=== PATIENT | female | born 1990 | race Caucasian/White ===

== ENCOUNTER → 2018-04-19 | Outpatient (CLI) | payer OTHER | END | disposition home or self-care (01) | LOC: US 15:46 | DX: Z34.82 Encounter for supervision of other normal pregnancy, second trimester (principal); Z3A.18 18 weeks gestation of pregnancy | CPT/HCPCS: 76805 ==

== ENCOUNTER 2018-05-30 11:14 | Observation (INO) | payer OTHER ==
[2018-05-30 12:59] LABS: BILIRUBIN,URINE NEGATIVE (NEG); CLARITY,URINE CLEAR; COLOR,URINE YELLOW; NITRITE,URINE NEGATIVE (NEG); PROTEIN,URINE NEGATIVE (NEG-TRACE); UROBILINOGEN,URINE 0.2 mg/dL (0.2 mg/dL)
[2018-05-30 13:16] LABS: BACTERIA,URINE 0 /HPF (0-FEW); RBC,URINE 0 /HPF (0-2); SQUAMOUS EPITHELIAL CELL,UR FEW /LPF; WBC,URINE 0 /HPF (0-4)
== END 2018-05-30 12:35 | disposition home or self-care (01) ==
LOC: 3 SO LND 11:14
PROVIDERS: ADMIT Obstetrics & Gynecology; ATTEND Obstetrics & Gynecology
DX: O26.852 Spotting complicating pregnancy, second trimester (principal); Z3A.24 24 weeks gestation of pregnancy
CPT/HCPCS: 81001; G0378; G0379

== ENCOUNTER → 2018-07-04 | Outpatient (CLI) | payer OTHER ==
--- NOTE | 2018-07-04 16:48 | RAD ---
Obstetrical ultrasound-limited, 07/04/2018: HISTORY: Follow-up marginal placenta previa Comparison is made to a study from 04/19/2018. There is a single intrauterine fetus in a cephalic orientation. The biparietal diameter measures 7.7 cm compatible with a gestational age of 30 weeks and 6 days. This corresponds well to the other measurements yielding an average gestational age of 31 weeks and 0 days and a sonographic EDC of 09/05/2018. The EDC established on the previous study 04/19/2018 was 09/15/2018. Normal activity and heart motion were seen. The heart rate is 132 bpm. The weight was estimated at 3 pounds and 9 ounces +/- 18 ounces. The head to abdominal circumference ratio is within normal limits. A full survey was not performed at this time. The amniotic fluid volume is within normal limits with the AASHISH calculated at 15.2. The placenta lies posteriorly. The cervix including the internal cervical os was not clearly defined. The lower margin of the placenta is estimated to lie approximately 1 cm from the center of the cervix. No periplacental hemorrhage is evident. IMPRESSION: 1. Single viable intrauterine fetus demonstrating satisfactory interval growth since 04/19/2018. 2. Suboptimal delineation of the cervix, however, the placenta appears low-lying. Electronically signed by: Villa Cordon MD (07/04/2018 4:45 PM) [facility]
== END | disposition home or self-care (01) ==
LOC: US 15:22
PROVIDERS: ATTEND Obstetrics & Gynecology
DX: O44.23 Partial placenta previa NOS or without hemorrhage, third trimester (principal); Z3A.30 30 weeks gestation of pregnancy
CPT/HCPCS: 76816

== ENCOUNTER → 2018-07-24 | Outpatient (CLI) | payer OTHER ==
--- NOTE | 2018-07-24 13:51 | RAD ---
OB ultrasound dated 07/24/2018: No comparison available. Clinical Indication: Marginal previa. Follow-up.. Findings: There is a single intrauterine gestation in cephalic presentation. The placenta is posterior in location with marginal placental previa with placental tip measuring about 7 mm from the internal os. Placental grade 2.. The amount of amniotic fluid appears appropriate. AASHISH equals 14.5 cm. Cervical length is 4.3 cm. Biometrical data is as follows: BPD = 7.97 cm for 32 weeks 0 days. HC = 29.29 cm for 32 weeks weeks 2 days. AC = 28.34 cmfor 32 weeks 3 days. FL = 6.4 cm for 33 weeks 1 days. Overall, the estimated sonographic gestational age is 32 weeks 3 days for estimated date of delivery of 09/15/2018. Estimated weight is 2008 g. Complete survey was not performed. heart rate 136 bpm.. Impression: 1. Single viable intrauterine gestation with estimated sonographic gestational age of 32 weeks 3 days. No acute findings. 2. Marginal placenta previa.. Electronically signed by: Izaiah Solorzano MD (07/24/2018 1:47 PM) [id number]
== END | disposition home or self-care (01) ==
LOC: US 14:00
PROVIDERS: ATTEND Obstetrics & Gynecology
DX: O44.23 Partial placenta previa NOS or without hemorrhage, third trimester (principal); Z3A.32 32 weeks gestation of pregnancy
CPT/HCPCS: 76816

== ENCOUNTER → 2020-07-12 | Outpatient (CLI) | payer OTHER ==
--- NOTE | 2020-07-12 17:08 | RAD ---
OB ultrasound greater than 14 weeks HISTORY: Uterine size discrepancy Sonographic examination of the presence of performed and multiple static images were obtained. There is a single live intrauterine . The heartbeat is confirmed at 153 beats for minute. There is a posterior placenta with marginal previa. There is a breech position. The maternal cervix measures 4.0 cm in length. The urinary bladder stomach heart kidneys ventricles and spine appear normal. The posterior fossa appears normal. The cord insertion appears normal. The face cannot be well seen due to the cephalic position with a stone. The measurements are as follows: BPD 4.4 cm 19 weeks 2 days Head circumference 16.5 cm 19 weeks 2 days Abdominal circumference 14.7 cm 20 weeks 0 days Femur length 3.4 cm 20 weeks 6 days The amniotic fluid volume appears subjectively normal. The LMP of 03/03/2020 corresponds with a 18 week 5 day gestational age and estimated confinement of December 08, 2020. Estimated size by ultrasound is 19 weeks 6 days estimated date confinement November 30, 2020. Estimated weight is 12 ounces +/- 2 ounces IMPRESSION: 1. Single live intrauterine . Size by ultrasound is within one standard deviation of size by LMP. 2. Breech position. 3. Marginal placenta previa. 4. No other abnormality identified. Electronically signed by: Liang Chaudhari III, MD (07/12/2020 5:05 PM) [facility]
== END ==
LOC: US 15:36
PROVIDERS: ATTEND Obstetrics & Gynecology
DX: O26.842 Uterine size-date discrepancy, second trimester (principal); Z3A.19 19 weeks gestation of pregnancy
CPT/HCPCS: 76805

== ENCOUNTER → 2020-09-20 | Outpatient (CLI) | payer OTHER ==
--- NOTE | 2020-09-20 15:51 | RAD ---
EXAM: Obstetrics sonogram. HISTORY: Placental location and weight assessment. TECHNIQUE: Sonographic imaging of a gravid uterus was performed. COMPARISON: 07/12/2020. FINDINGS: There is a single intrauterine fetus in breech presentation with a normal heart rate of hea rt and 35 bpm. The cervix is closed and measures 5.4 cm in length. There is a grade [address] without evidence of placenta previa. The placental margin is now 2.9 cm from the internal cervica l os. The amniotic fluid index is normal at 14.1 cm. The biparietal diameter is 7.43 cm, corresponding with 29 weeks and 6 days. The head circumference is 27.80 cm, corresponding with 30 weeks and 0 days. The abdominal circumference is 25.95 cm, correspon ding with 30 weeks and 1 day. The femoral length is 5.90 cm, corresponding with 30 weeks and 5 days. The estimated gestational age patient combined ultrasound measurements 30 weeks and 2 days. The estim ated weight is 1552 g. This corresponds with the 69th percentile for a gestational age of 28 we eks and 5 days based on LMP. The anatomy is not formally assessed on this exam. IMPRESSION: 1. Single intrauterine fetus in breech presentation with normal heart rate and gestational age based on ultrasound measurements of 30 weeks and 2 days. The weight is estimated at the 69th percenti le for a gestational age of 20 weeks and 5 days based on LMP. 2. No evidence of placenta previa. 3. Note is made that the anatomy is not formally assessed on this exam. Electronically signed by: Shaila Glez MD (09/20/2020 3:48 PM) [id number]
== END ==
LOC: US 14:06
PROVIDERS: ATTEND Obstetrics & Gynecology
DX: O32.1XX0 Maternal care for breech presentation, not applicable or unspecified (principal); O44.03 Complete placenta previa NOS or without hemorrhage, third trimester; Z3A.30 30 weeks gestation of pregnancy
CPT/HCPCS: 76815